=== PATIENT | female | born 1950 | race Caucasian/White ===

== ENCOUNTER 2018-08-27 10:23 | Observation (INO) | payer MEDICARE, SELFPAY ==
[2018-08-27] VITALS (15 sets, daily range): BP systolic 93–127; BP diastolic 50–68; PULSE 72–90; RESP 14–18; TEMP 36.6–36.9; O2SAT 92–100; BMI 22.3; BMI 22.1
[2018-08-27 10:36] LABS: Bedside Glucose 143 mg/dL (70-110)
--- NOTE | 2018-08-27 10:40 | EKG12_ITS ---
Test Reason : NEURO S/SX Blood Pressure : / mmHG Vent. Rate : 077 BPM Atrial Rate : 077 BPM P-R Int : 154 ms QRS Dur : 090 ms QT Int : 390 ms P-R-T Axes : 040 017 071 degrees QTc Int : 441 ms Normal sinus rhythm with sinus arrhythmia Normal ECG Confirmed by DIANE RESTREPO, TABITHA ([id number]), senior technical editor ESPERANZA STINSON ([id number] on 08/29/2018 11:34:31 AM Referred By: Ady Stevens Confirmed By:TABITHA CONTRERAS MD
--- NOTE | 2018-08-27 10:40 | CT_ITS ---
STUDY: CT BRAIN WITHOUT CONTRAST REASON FOR EXAM: Female, 68 years old. Left-sided weakness RADIATION DOSAGE (If Supplied By Facility): CTDIvol = ( 44.99 ) mGy, DLP = ( 796.11 ) mGycm TECHNIQUE: Transaxial CT imaging of the brain was performed without administration of intravenous contrast material. Individualized dose optimization techniques were used for this CT. COMPARISON: August 27, 2016 MRI, CTA head of 08/26/2016 FINDINGS: Normal soft tissue structures. Normal calvarium. There is mild cerebral atrophy with widening of the extra-axial spaces and ventricular dilatation. There are areas of decreased attenuation within the white matter tracts of the supratentorial brain, consistent with microvascular disease changes. Rounded low-density lesion adjacent to the right basal ganglia may represent an old lacunar infarction or prominent perivascular space. Normal brainstem. Normal cerebellum. There is no intracranial hemorrhage. There are no findings of an acute ischemic infarction. There is mucoperiosteal inflammatory disease of the paranasal sinuses consistent with severe sinusitis. CT/Brain/Head without Contrast IMPRESSION: 1. No acute intracranial hemorrhage or mass effect. 2. Pansinusitis, new since 2017. 3. Central parenchymal volume loss. White matter changes that are nonspecific but most commonly associated with chronic small vessel ischemic disease. Electronically Signed: Darío Broderick MD at 11:17 EDT , Service support ,
--- NOTE | 2018-08-27 10:40 | RAD_ITS ---
STUDY: X-RAY CHEST REASON FOR EXAM: Female, 68 years old. Cough TECHNIQUE: AP COMPARISON: 08/26/2016 FINDINGS: EKG leads project over the chest. The lungs are clear and expanded. There is no demonstrated pleural abnormality. Normal size heart. Normal mediastinum and shana. Normal visualized pulmonary arteries. There is atherosclerotic tortuosity of the aortic arch and descending thoracic aorta. No acute bony process. There is no demonstrated abnormality of the visualized soft tissue structures of the upper abdomen. RAD/Chest 1 View IMPRESSION: Stable, nonacute portable x-ray examination of the chest. Electronically Signed: Darío Broderick MD at 11:33 EDT , Service support ,
--- NOTE | 2018-08-27 10:44 | ED.VISSUMM ---
- ER Visit Summary Date of Service: 08/27/18 Chief Complaint: Left arm and leg weakness History of Present Illness: The patient is a 68 F who presents with left arm and leg weakness for the past 3 days. Patient states she woke up 3 days ago and was having weakness in her left arm and leg. Patient admits to some slurred speech but denies any difficulty swallowing. Patient denies any facial weakness. Patient does admit to a frontal headache. Patient states she has been having some nausea and vomiting for the past few days as well. Patient admits to some lower chest pain. Patient also admits to a cough but denies any sputum production. Patient denies any fevers or chills. Physical Examination: Vital signs are stable. Patient is afebrile. Patient is in no acute distress. Cranial nerves II through XII are intact. Strength is 5/5 in the right upper and lower extremity. Strength is 5/5 in plantar and dorsiflexion of the left ankle. Strength is 4/5 in the left upper extremity strength is 1/5 in quadriceps and hip flexion. There are no sensory deficits noted. Pupils are equal, round, and reactive to light bilaterally. Extraocular muscles are intact. There are no visual deficits noted. Oral mucosa is pink and moist. Tongue is midline. Neck is supple. Trachea is midline. There is no JVD noted. Heart was regular rate and rhythm. Lungs are clear and equal bilaterally. Abdomen is soft nontender. Test Results: CT scan of the brain was obtained. There are chronic changes and pansinusitis but no acute infarct or bleed. Portable chest x-ray was obtained. There are chronic changes but no acute cardiopulmonary process. EKG showed normal sinus rhythm with a rate of 77. There are no acute ST or T wave changes. CBC shows leukocytosis of 21.7 with 80 neutrophils and 14 lymphocytes. BUN was elevated at 74. Creatinine was slightly elevated at 1.74. Troponin was normal. Emergency Department Course and Treatment: Patient was given IV fluids. Patient had no improvement of her symptoms on reevaluation. Case was discussed with the hospitalist. Patient will be admitted to PCU. Patient understood and was agreeable with the plan. All questions were answered. Disposition: Admit to hospital Impression: Stroke with left-sided weakness This note was generated with [employer] software. It may contain incorrect words, spelling, and punctuation that were not noted in review of the chart prior to signing ED Disposition - Plan for ED Patient: Disposition: Acute Care Hospital [facility] Diagnosis: Stroke, Left-sided weakness Referrals: Care Physician,No Primary [Primary Care Provider] -
--- NOTE | 2018-08-27 10:48 | ED.DCSUM_ITS ---
- ER Visit Summary Date of Service: 08/27/18 Chief Complaint: Left arm and leg weakness History of Present Illness: The patient is a 68 F who presents with left arm and leg weakness for the past 3 days. Patient states she woke up 3 days ago and was having weakness in her left arm and leg. Patient admits to some slurred speech but denies any difficulty swallowing. Patient denies any facial weakness. Patient does admit to a frontal headache. Patient states she has been having some nausea and vomiting for the past few days as well. Patient admits to some lower chest pain. Patient also admits to a cough but denies any sputum production. Patient denies any fevers or chills. Physical Examination: Vital signs are stable. Patient is afebrile. Patient is in no acute distress. Cranial nerves II through XII are intact. Strength is 5/5 in the right upper and lower extremity. Strength is 5/5 in plantar and dorsiflexion of the left ankle. Strength is 4/5 in the left upper extremity strength is 1/5 in quadriceps and hip flexion. There are no sensory deficits noted. Pupils are equal, round, and reactive to light bilaterally. Extraocular muscles are intact. There are no visual deficits noted. Oral mucosa is pink and moist. Tongue is midline. Neck is supple. Trachea is midline. There is no JVD noted. Heart was regular rate and rhythm. Lungs are clear and equal bilaterally. Abdomen is soft nontender. Test Results: CT scan of the brain was obtained. There are chronic changes and pansinusitis but no acute infarct or bleed. Portable chest x-ray was obtained. There are chronic changes but no acute cardiopulmonary process. EKG showed normal sinus rhythm with a rate of 77. There are no acute ST or T wave changes. CBC shows leukocytosis of 21.7 with 80 neutrophils and 14 lymphocytes. BUN was elevated at 74. Creatinine was slightly elevated at 1.74. Troponin was normal. Emergency Department Course and Treatment: Patient was given IV fluids. Patient had no improvement of her symptoms on reevaluation. Case was discussed with the hospitalist. Patient will be admitted to PCU. Patient understood and was agreeable with the plan. All questions were answered. Disposition: Admit to hospital Impression: Stroke with left-sided weakness This note was generated with [employer] software. It may contain incorrect words, spelling, and punctuation that were not noted in review of the chart prior to signing ED Disposition - Plan for ED Patient: Disposition: Acute Care Hospital [facility] Diagnosis: Stroke, Left-sided weakness Referrals: Care Physician,No Primary [Primary Care Provider] -
[2018-08-27] MEDS: 0.9% Normal Saline 1,000 ML 999 ML IV (10:52)
[2018-08-27 10:57] LABS: Differential Indicated MANUAL DIFF; Hematocrit 34.7 % (37-47); Hemoglobin 11.7 g/dl (12.0-15.0); Mean Corp Hgb Conc 33.7 g/gl (32-36); Mean Corpuscular Hgb 29.3 pg (27.0-32.0); Mean Corpuscular Volume 86.8 fL (81-99); Mean Platelet Vol. 9.8 fl (6.2-12.0); POSITIVE COUNT YES; POSITIVE DIFFERENTIAL YES; POSITIVE MORPHOLOGY YES; Platelet Count 467 K/mm3 (150-450); RBC Distribution Width SD 44.7 fl (35.1-43.9); White Blood Count 21.7 K/mm3 (4.4-11.0)
[2018-08-27 10:58] LABS: International Normalized Ratio 1.1; Prothrombin Time (Protime)PT. 13.7 SECONDS (11.7-14.9)
[2018-08-27 10:59] LABS: Partial Thromboplast Time 31.1 Seconds (24.1-36.2)
[2018-08-27 11:07] LABS: Anion Gap 10 (5-15); BUN 74 mg/dL (7-18); BUN/Creat Ratio 42.5 RATIO (10-20); Chloride 104 mmol/L (98-107); Creatinine, Serum 1.74 mg/dL (0.55-1.02); EST Glomerular Filtration Rate 31 mL/min (>60); Est Glom Filt Rate - Afr Amer 37 mL/min (>60); Glucose 145 mg/dL (74-106); Potassium 3.9 mmol/L (3.5-5.1); Sodium Level 137 mmol/L (136-145)
[2018-08-27 11:17] LABS: Eosinophil 1 % (0-5); Lymphocyte 14 % (19-41); Monocyte 5 % (0-10); Neutrophil-Segmented 80 % (47-70); Total Cells Counted 100 (MANUAL DIFF)
[2018-08-27 11:21] LABS: Absolute Lymphocyte Count 3.04 X10^3/ul (0.83-4.51); Absolute Neutrophil Count 17.4 X10^3/uL (2.0-7.7)
--- NOTE | 2018-08-27 13:01 | NURSING ---
89 [place] STROKE WITH LEFT SIDED WEAKNESS
--- NOTE | 2018-08-27 13:26 | PCM.HP.STD ---
Problem List (1) Left-sided weakness Status: Acute (2) Alcohol abuse Status: Chronic (3) Tobacco abuse Status: Chronic (4) Probable COPD Status: Chronic (5) Resistant hypertension Status: Chronic (6) HLD (hyperlipidemia) Status: Acute History of Present Illness Date of Admission: 08/27/18 Chief Complaint: LUE and LLE weakness The patient is a 68 year old F with a PMH as below who presents with 3 days of left-sided weakness. Of note she had a stroke approximately 2 years ago with deficits on the left upper and left lower extremity. She did leave rehab early at that time he has had some degree of chronic weakness in her left side. She states that over the last 3 days it has been getting worse and her son made her come into the ER. In the ER CT scan of the brain was negative and chest x-ray was also normal. She had a 4 out of 5 deficit per the ER exam on the left upper extremity and 1 out of 5 in strength on the left lower extremity. She has been afebrile but had a leukocytosis to [address] scan she was read as having pansinusitis. Also of note she is having an LOREN creatinine of 1.74. She denies any recent illnesses and has not been around any sick contacts. She denies having any fevers at home. 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 Noncompliance (Chronic) Edentulism (Chronic) Resistant hypertension (Chronic) Personality disorder (Chronic) Allergies Penicillins Allergy (Verified 08/27/18 10:32) Other tetanus toxoid, adsorbed Allergy (Verified 08/27/18 10:32) ALMOST KILLED ME Home Medications: Ambulatory Orders Medication Instructions Recorded Amlodipine [Norvasc] 10 mg PO DAILY 08/27/18 Atorvastatin Calcium [Lipitor] 80 mg PO QHS 08/27/18 Cholecalciferol (Vitamin D3) 1 capsule PO QWEEK 08/27/18 [Vitamin D3] Lisinopril [Zestril] 10 mg PO DAILY 08/27/18 Surgical History: appendectomy, - - Left fourth finger amputation Psychiatric History: No pertinent psych hx 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 Denies: Chills, Fever, Weight Change HEENT: Denies: Head Aches, Sinus Congestion, Sinus Drainage Cardiovascular: Denies: Chest Pain, Palpitations Respiratory: Reports: Cough. Denies: Shortness of breath at rest, Sputum production Gastrointestinal: Denies: Abdominal Pain, Nausea, Vomiting Genitourinary: Denies: Dysuria Musculoskeletal: Denies: Joint Pain, Joint Tenderness Skin: Denies: Rash, Wounds Neurological: Reports: Focal weakness - Left upper and lower extremity. Denies: Numbness, Tingling Psychiatric: Denies: Anxiety, Depression, Homicidal Ideations, Suicidal Ideations Hematologic/ Lymphatic: Denies: Easy Bruising, Easy Bleeding VTE Information - Inpt Only VTE Present on Admission: No Patient Problems: Active and Suspected Problems Left-sided weakness (Acute) Stroke (Acute) - Physical Exam General: Alert, Oriented x3, Cooperative, No apparent distress, - - Slightly unkempt HEENT: Atraumatic, PERRLA, EOMI, Normocephalic Oral: Moist Mucosa Neck: Supple, No JVD Lungs: Clear to auscultation, Normal air movement, No rhonchi, No wheeze, No rales Cardiovascular: Regular rate, Regular Rhythm, Normal S1, Normal S2, No murmurs Abdomen: Soft, Non Tender, Non-Distended, No Hepato-splenomegaly Extremities: No edema, Capillary Refill Less than 3 Seconds Skin: No rashes, No breakdown Neurological: Cranial nerves II-XII grossly intact, Deep Tendon Reflexes 2+/4 and Symmetrical, Sensory exam intact to light touch and pain, Coordination normal, - - Left upper extremity is 4+ out of 5, left lower extremity is 4- out of 5. Proprioception is also intact Psych/Mental Status: Normal Affect, Appropriate Vital Signs Temp Pulse Resp BP Pulse Ox 98.0 F 82 18 117/62 98 08/27/18 10:28 08/27/18 13:15 08/27/18 13:15 08/27/18 13:15 08/27/18 13:15 Oxygen Flow Rate (L/min) 2 Oxygen Delivery Method Nasal Cannula Weight: 118 lb 2.684 oz Body Mass Index (BMI) 22.3 Finger Stick Blood Glucose 143 Laboratory Tests Past 24 Hrs 08/27/18 08/27/18 08/27/18 10:30 10:30 10:30 WBC 21.7 H RBC 4.00 L Hgb 11.7 L Hct 34.7 L MCV 86.8 MCH 29.3 MCHC 33.7 RDW 14.0 RDW Differential 44.7 H Plt Count 467 H MPV 9.8 Neut % (Auto) Not Reportable Absolute Neuts (auto) 17.4 H Absolute Lymphs (auto) 3.04 Total Counted 100 Neutrophils % (Manual) 80 H Lymphocytes % (Manual) 14 L Monocytes % (Manual) 5 Eosinophils % (Manual) 1 Diff Path Review July foll PT 13.7 INR 1.1 APTT 31.1 Sodium 137 Potassium 3.9 Chloride 104 Carbon Dioxide 23.0 Anion Gap 10 BUN 74 H Creatinine 1.74 H Estim Creat Clear Calc 22.70 Est GFR (MDRD) Af Amer 37 L Est GFR (MDRD) Non-Af 31 L BUN/Creatinine Ratio 42.5 H Glucose 145 H Calcium 10.0 Troponin I < 0.015 POC Glucose 08/27/18 10:32 POC Glucose 143 H Assessment/Plan All Active Problems Left-sided weakness (Acute) Stroke (Acute) HLD (hyperlipidemia) (Acute) Nicotine abuse (Acute) Debility (Acute) 1. Possible new CVA in the setting of 2 prior CVAs/leukocytosis -We will obtain a UA to evaluate for the leukocytosis even though she denies any dysuria -Possible that a urinary tract infection or even her pansinusitis could cause symptoms of her old stroke -We will obtain an echo and an MRI on Wednesday -Continue with aspirin but will hold her blood pressure medications for today and restart them tomorrow -We will perform NIH evaluations, my NIH is 2 some activity against gravity in her left leg -Begin aspirin -Chest x-ray was negative for pneumonia -If her leukocytosis does not resolve may need to initiate Augmentin therapy for her sinusitis 2. HTN/HLD -We will hold her blood pressure medications until tomorrow -Home Lipitor to 80 mg daily DVT: Lovenox Code Visit Inpatient E&M: 47765 Init Hosp L2
--- NOTE | 2018-08-27 13:30 | HP.PCM_ITS ---
Problem List (1) Left-sided weakness Status: Acute (2) Alcohol abuse Status: Chronic (3) Tobacco abuse Status: Chronic (4) Probable COPD Status: Chronic (5) Resistant hypertension Status: Chronic (6) HLD (hyperlipidemia) Status: Acute History of Present Illness Date of Admission: 08/27/18 Chief Complaint: LUE and LLE weakness The patient is a 68 year old F with a PMH as below who presents with 3 days of left-sided weakness. Of note she had a stroke approximately 2 years ago with deficits on the left upper and left lower extremity. She did leave rehab early at that time he has had some degree of chronic weakness in her left side. She s tates that over the last 3 days it has been getting worse and her son made her come into the ER. In the ER CT scan of the brain was negative and chest x-ray was also normal. She had a 4 out of 5 deficit per the ER exam on the left upper extremity and 1 out of 5 in strength on the left lower extremity. She has been afebrile but had a leukocytosis to [address] scan she was read as having pansinusitis. Also of note she is having an LOREN creatinine of 1.74. She denies any recent illnesses and has not been around any sick contacts. She denies having any fevers at home. 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 stenosis Noncompliance (Chronic) Edentulism (Chronic) Resistant hypertension (Chronic) Personality disorder (Chronic) Allergies Penicillins Allergy (Verified 08/27/18 10:32) Other tetanus toxoid, adsorbed Allergy (Verified 08/27/18 10:32) ALMOST KILLED ME Home Medications: Ambulatory Orders Medication Instructions Recorded Amlodipine [Norvasc] 10 mg PO DAILY 08/27/18 Atorvastatin Calcium [Lipitor] 80 mg PO QHS 08/27/18 Cholecalciferol (Vitamin D3) 1 capsule PO QWEEK 08/27/18 [Vitamin D3] Lisinopril [Zestril] 10 mg PO DAILY 08/27/18 Surgical History: appendectomy, - - Left fourth finger amputation Psychiatric History: No pertinent psych hx 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 Denies: Chills, Fever, Weight Change HEENT: Denies: Head Aches, Sinus Congestion, Sinus Drainage Cardiovascular: Denies: Chest Pain, Palpitations Respiratory: Reports: Cough. Denies: Shortness of breath at rest, Sputum production Gastrointestinal: Denies: Abdominal Pain, Nausea, Vomiting Genitourinary: Denies: Dysuria Musculoskeletal: Denies: Joint Pain, Joint Tenderness Skin: Denies: Rash, Wounds Neurological: Reports: Focal weakness - Left upper and lower extremity. Denies: Numbness, Tingling Psychiatric: Denies: Anxiety, Depression, Homicidal Ideations, Suicidal Ideations Hematologic/ Lymphatic: Denies: Easy Bruising, Easy Bleeding VTE Information - Inpt Only VTE Present on Admission: No Patient Problems: Active and Suspected Problems Left-sided weakness (Acute) Stroke (Acute) - Physical Exam General: Alert, Oriented x3, Cooperative, No apparent distress, - - Slightly unkempt HEENT: Atraumatic, PERRLA, EOMI, Normocephalic Oral: Moist Mucosa Neck: Supple, No JVD Lungs: Clear to auscultation, Normal air movement, No rhonchi, No wheeze, No rales Cardiovascular: Regular rate, Regular Rhythm, Normal S1, Normal S2, No murmurs Abdomen: Soft, Non Tender, Non-Distended, No Hepato-splenomegaly Extremities: No edema, Capillary Refill Less than 3 Seconds Skin: No rashes, No breakdown Neurological: Cranial nerves II-XII grossly intact, Deep Tendon Reflexes 2+/4 and Symmetrical, Sensory exam intact to light touch and pain, Coordination normal, - - Left upper extremity is 4+ out of 5, left lower extremity is 4- out of 5. Proprioception is also intact Psych/Mental Status: Normal Affect, Appropriate Vital Signs Temp Pulse Resp BP Pulse Ox 98.0 F 82 18 117/62 98 08/27/18 10:28 08/27/18 13:15 08/27/18 13:15 08/27/18 13:15 08/27/18 13:15 Oxygen Flow Rate (L/min) 2 Oxygen Delivery Method Nasal Cannula Weight: 118 lb 2.684 oz Body Mass Index (BMI) 22.3 Finger Stick Blood Glucose 143 Laboratory Tests Past 24 Hrs 08/27/18 08/27/18 08/27/18 10:30 10:30 10:30 WBC 21.7 H RBC 4.00 L Hgb 11.7 L Hct 34.7 L MCV 86.8 MCH 29.3 MCHC 33.7 RDW 14.0 RDW Differential 44.7 H Plt Count 467 H MPV 9.8 Neut % (Auto) Not Reportable Absolute Neuts (auto) 17.4 H Absolute Lymphs (auto) 3.04 Total Counted 100 Neutrophils % (Manual) 80 H Lymphocytes % (Manual) 14 L Monocytes % (Manual) 5 Eosinophils % (Manual) 1 Diff Path Review July foll PT 13.7 INR 1.1 APTT 31.1 Sodium 137 Potassium 3.9 Chloride 104 Carbon Dioxide 23.0 Anion Gap 10 BUN 74 H Creatinine 1.74 H Estim Creat Clear Calc 22.70 Est GFR (MDRD) Af Amer 37 L Est GFR (MDRD) Non-Af 31 L BUN/Creatinine Ratio 42.5 H Glucose 145 H Calcium 10.0 Troponin I < 0.015 POC Glucose 08/27/18 10:32 POC Glucose 143 H Assessment/Plan All Active Problems Left-sided weakness (Acute) Stroke (Acute) HLD (hyperlipidemia) (Acute) Nicotine abuse (Acute) Debility (Acute) 1. Possible new CVA in the setting of 2 prior CVAs/leukocytosis -We will obtain a UA to evaluate for the leukocytosis even though she denies any dysuria -Possible that a urinary tract infection or even her pansinusitis could cause symptoms of her old stroke -We will obtain an echo and an MRI on Wednesday -Continue with aspirin but will hold her blood pressure medications for today and restart them tomorrow -We will perform NIH evaluations, my NIH is 2 some activity against gravity in her left leg -Begin aspirin -Chest x-ray was negative for pneumonia -If her leukocytosis does not resolve may need to initiate Augmentin therapy for her sinusitis 2. HTN/HLD -We will hold her blood pressure medications until tomorrow -Home Lipitor to 80 mg daily DVT: Lovenox Code Visit Inpatient E&M: 21908 Init Hosp L2
--- NOTE | 2018-08-27 14:02 | ECHOCS_ITS ---
Reason For Study: TIA/CVA Procedure This was a 2D Doppler, Color Flow transthoracic echocardiogram. The study was technically difficult. Exam performed portable in patient room. Left Ventricle Normal LV size. Left ventricular systolic function is normal. The estimated ejection fraction is 65 %. Stage 1 diastolic dysfunction. No regional wall motion abnormalities noted. Right Ventricle Normal RV size. Normal systolic function. Atria Normal left atrium. Normal right atrium. Mitral Valve Normal mitral valve. Tricuspid Valve Normal tricuspid valve. Mild (1+) tricuspid valve insufficiency. Pulmonary artery systolic pressure is 37 mmHg. Aortic Valve Trisinus/trileaflet aortic valve. Mild focal aortic valve calcification. Pulmonic Valve Normal pulmonic valve. Great Vessels Normal aortic root. The pulmonary artery is normal size. Normal inferior vena cava. Pericardium/Pleural No pericardial effusion. Medication Diluted definity 2ml given slow IV push to enhance endocardial definition. MMode/2D Measurements & Calculations LVIDd: 4.1 cm IVSd: 0.73 cm LVOT diam: 1.8 cm LVIDs: 2.9 cm LVPWd: 0.76 cm RVDd: 2.7 cm FS: 29.5 % LVOT area: 2.6 cm2 LAV(MOD-bp): 60.5 ml LVAd ap4: 26.9 cm2 SV(MOD-sp4): 62.5 ml LAV(MOD-bp) Indexed: 40.2 ml/m2 EDV(MOD-sp4): 77.1 ml LAV(MOD-sp2): 64.2 ml EDV(sp4-el): 80.9 ml LAV(MOD-sp4): 53.9 ml LVAs ap4: 9.3 cm2 ESV(MOD-sp4): 14.6 ml ESV(sp4-el): 13.9 ml EF(MOD-sp4): 81.1 % EF(sp4-el): 82.9 % SV(sp4-el): 67.0 ml LA A4 area: 18.6 cm2 RA A4 area: 13.1 cm2 Time Measurements MV dec time: 0.28 sec Doppler Measurements & Calculations MV E max ziggy: 106.9 cm/sec Lat Peak E' Ziggy: 8.5 cm/sec Med Peak E' Ziggy: 6.3 cm/sec MV A max ziggy: 134.4 cm/sec E/E' lat: 12.6 E/E' med: 17.1 MV E/A: 0.80 MV V2 max: 140.1 cm/sec Ao V2 max: 232.3 cm/sec LV V1 max: 113.8 cm/sec MV max P.9 mmHg Ao max P.6 mmHg LV V1 max P.2 mmHg MV V2 mean: 96.4 cm/sec Ao V2 mean: 171.8 cm/sec LV V1 mean P.8 mmHg MV mean P.0 mmHg Ao mean P.7 mmHg LV V1 mean: 78.2 cm/sec MV V2 VTI: 41.7 cm Ao V2 VTI: 47.1 cm LV V1 VTI: 25.3 cm MVA(VTI): 1.6 cm2 LAZARO(I,D): 1.4 cm2 LAZARO(V,D): 1.3 cm2 SV(LVOT): 65.6 ml TR max ziggy: 290.8 cm/sec MV P1/2t-pr_phl: 104.2 msec TR max P.9 mmHg Interpretation Summary Normal LV size. Left ventricular systolic function is normal. The estimated ejection fraction is 65 %. Stage 1 diastolic dysfunction. Mild (1+) tricuspid valve insufficiency. Contrast injection was performed. Ordering Physician: Ady Stevens Referring Physician: Ady Stevens Performed By: Maye Salinas, MELANIA, RVT
--- NOTE | 2018-08-27 14:02 | MRI_ITS ---
STUDY: MRI BRAIN WITHOUT CONTRAST REASON FOR EXAM: Female, 68 years old. Left-sided weakness and pain TECHNIQUE: Standardized multiplanar fat and water weighted pulse sequences were obtained. COMPARISON: 27 August 2018 FINDINGS: There is no acute infarct. There is mild to moderate extent of chronic small vessel white matter ischemic change. There is a dilated perivascular space in the right basal ganglia and adjacent choroid fissure. There is mild global brain atrophy and moderate brainstem/cerebellar atrophy. There is no mass effect, midline shift, hydrocephalus or herniation. Incidentally noted is a right parasagittal occipital intraosseous pacchionian granulation. There are bilateral mastoid effusions. Nasopharynx is clear. There is loculation of fluid in the frontal, ethmoid, sphenoid and maxillary sinuses. Clivus is intact. Appearance is similar to recent CT head. MRI/Brain without Contrast IMPRESSION: 1. No acute findings. 2. Cerebellar predominant atrophy, this can be seen with primary or secondary neurodegenerative diseases. 3. Mild to moderate chronic white matter ischemic change. 4. Paranasal sinus mucosal reactive changes/fluid accumulation. 5. Bilateral mastoid effusions without otitis media or nasopharyngeal abnormality. Electronically Signed: Rosangela Brown, at 20:00 EDT Tel , Service support ,
[2018-08-27] MEDS: 0.9% Normal Saline 1,000 ML 100 ML IV (15:03)
[2018-08-27] MEDS: 0.9% NaCl Peripheral Flush Adult/Peds IV (15:04)
[2018-08-27 17:14] LABS: Color, Urine Yellow (Yellow); Glucose, Dipstick Normal (Normal); Ketone-Dipstick Negative (Negative); Leukocyte Esterase-Dipstick Negative /ul (Negative); Nitrite-Dipstick Negative (Negative); Occult Blood-Urine Negative /ul (Negative); Protein-Dipstick Negative (Negative); Urine Bilirubin Dipstick Negative (Negative); Urine Clarity Sl. Cloudy (Clear); Urine Urobilinogen Normal (Normal)
--- NOTE | 2018-08-27 21:40 | NURSING ---
This RN tried to assess patient for NIHSS but she refuses to allow this RN to assess her.
[2018-08-27] MEDS: Menthol/Lanolin/Calamine/Znox 113 GM Tube 1 APPLIC TOPICAL (21:55)
[2018-08-27] MEDS: Atorvastatin Calcium 80 MG Tablet PO (21:55)
[2018-08-28] VITALS (13 sets, daily range): BP systolic 106–127; BP diastolic 59–68; PULSE 74–91; RESP 16–18; TEMP 36.7–37.6; O2SAT 92–95; BMI 22.1
--- NOTE | 2018-08-28 01:18 | NURSING ---
This RN assessed patient and she was sating at 89-91 on room air. Patient refused to wear oxygen because she is not able to breath through her nose. This RN explained to patient the importance of keeping her oxygen saturation up above 93%. Patient began to yell at this RN and stated that she hates this hospital. That she came in here for a head cold and does not understand why she is not getting treated for that. This RN tried explaining to the patient the plan of care, however, she did not want to listen. The patient continued to yell at this RN. Patient refused to perform part of the stroke assessment, this RN assessed as much as she could. Patient was satting at 93% on room air while talking .
[2018-08-28] MEDS: 0.9% Normal Saline 1,000 ML 100 ML IV ×2 (01:22→11:26)
[2018-08-28] MEDS: Enoxaparin 30 MG/0.3 ML Syringe SC (05:33)
--- NOTE | 2018-08-28 05:36 | NURSING ---
This RN did as much of the stroke assessment that the patient would tolerate. Patient did not want to raise legs or arms to be assessed.
[2018-08-28 05:58] LABS: Absolute Lymphocyte Count 1.92 X10^3/ul (0.83-4.51); Absolute Neutrophil Count 13.1 X10^3/uL (2.0-7.7); Basophil# 0.04 X10^3/uL; Basophil% 0.2 % (0-1); Eosinophil# 0.27 X10^3/uL; Eosinophils% 1.6 % (0-5); Hematocrit 28.6 % (37-47); Hemoglobin 9.4 g/dl (12.0-15.0); Lymphocyte # 1.92 X10^3/ul (4.0); Lymphocyte % 11.1 % (19-41); Mean Corp Hgb Conc 32.9 g/gl (32-36); Mean Corpuscular Hgb 28.7 pg (27.0-32.0); Mean Corpuscular Volume 87.5 fL (81-99); Mean Platelet Vol. 9.4 fl (6.2-12.0); Monocyte# 1.55 X10^3/uL; Platelet Count 334 K/mm3 (150-450); RBC Distribution Width CV 14.1 % (11.6-14.6); RBC Distribution Width SD 45.3 fl (35.1-43.9); Red Blood Count 3.27 M/mm3 (4.2-5.4); White Blood Count 17.3 K/mm3 (4.4-11.0)
[2018-08-28 06:00] LABS: Differential Indicated SCAN CRITERIA MET; POSITIVE COUNT YES; POSITIVE DIFFERENTIAL YES; POSITIVE MORPHOLOGY YES
[2018-08-28 06:51] LABS: Anion Gap 8 (5-15); BUN 40 mg/dL (7-18); BUN/Creat Ratio 38.8 RATIO (10-20); Calcium,Total 8.3 mg/dL (8.5-10.1); Chloride 117 mmol/L (98-107); Cholesterol 59 mg/dL (200); Creatinine, Serum 1.03 mg/dL (0.55-1.02); EST Glomerular Filtration Rate 56 mL/min (>60); Est Glom Filt Rate - Afr Amer 68 mL/min (>60); Estimated Creatinine Clearance 38.35 ml/min; Glucose 99 mg/dL (74-106); High Density Lipoprotein 36 mg/dL; Sodium Level 145 mmol/L (136-145); Triglycerides 70 mg/dL; Very Low Density Lipoprotein 14 mg/dL (5-40)
--- NOTE | 2018-08-28 08:20 | PN_ITS ---
Patient Problems: Active and Suspected Problems Left-sided weakness (Acute) Stroke (Acute) Subjective: She states that her strength in her usage of her left lower extremity is back to normal. She says that she will not go to rehab or longterm facility for rehab. Continues to complain of some sinus pressure Vitals/I&O's: Vital Signs Temp Pulse Resp BP Pulse Ox 99.4 F H 91 18 127/63 H 92 08/28/18 05:15 08/28/18 05:15 08/28/18 05:15 08/28/18 05:15 08/28/18 05:15 Oxygen Flow Rate (L/min) 2 Oxygen Delivery Method Room Air Weight: 117 lb Body Mass Index (BMI) 22.1 Finger Stick Blood Glucose 143 Intake and Output for Last 24 Hours 08/26/18 08/27/18 08/28/18 23:59 23:59 23:59 Intake Total 377 / 377 1127 / 1127 Output Total 500 / 500 Balance -123 / -123 1127 / 1127 General: Alert, Oriented x3, Cooperative, No apparent distress, - - Slightly unkempt HEENT: Atraumatic, PERRLA, EOMI, Normocephalic Oral: Moist Mucosa Neck: Supple, No JVD Lungs: Clear to auscultation, Normal air movement, No rhonchi, No wheeze, No rales Cardiovascular: Regular rate, Regular Rhythm, Normal S1, Normal S2, No murmurs Abdomen: Soft, Non Tender, Non-Distended, No Hepato-splenomegaly Extremities: No edema, Capillary Refill Less than 3 Seconds Skin: No rashes, No breakdown Neurological: Cranial nerves II-XII grossly intact, Deep Tendon Reflexes 2+/4 and Symmetrical, Sensory exam intact to light touch and pain, Coordination normal, - - Left upper extremity is 4+ out of 5, left lower extremity is 4- out of 5. Proprioception is also intact Psych/Mental Status: Normal Affect, Appropriate Laboratory Results 08/27/18 10:30: WBC 21.7 H, RBC 4.00 L, Hgb 11.7 L, Hct 34.7 L, MCV 86.8, MCH 29.3, MCHC 33.7, RDW 14.0, RDW Differential 44.7 H, Plt Count 467 H, MPV 9.8, Neut % (Auto) Not Reportable, Absolute Neuts (auto) 17.4 H, Absolute Lymphs (auto) 3.04, Total Counted 100, Neutrophils % (Manual) 80 H, Lymphocytes % (Manual) 14 L, Monocytes % (Manual) 5, Eosinophils % (Manual) 1, Diff Path Review July foll 08/27/18 10:30: PT 13.7, INR 1.1, APTT 31.1 08/27/18 10:30: Sodium 137, Potassium 3.9, Chloride 104, Carbon Dioxide 23.0, Anion Gap 10, BUN 74 H, Creatinine 1.74 H, Estim Creat Clear Calc 22.70, Est GFR (MDRD) Af Amer 37 L, Est GFR (MDRD) Non-Af 31 L, BUN/Creatinine Ratio 42.5 H, Glucose 145 H, Calcium 10.0, Troponin I < 0.015 08/27/18 10:32: POC Glucose 143 H 08/27/18 15:30: Urine Color Yellow, Urine Clarity Sl. Cloudy, Urine pH 6.0, Ur Specific [place] 1.020, Urine Protein Negative, Urine Glucose (UA) Normal, Urine Ketones Negative, Urine Occult Blood Negative, Urine Nitrite Negative, Urine Bilirubin Negative, Urine Urobilinogen Normal, Ur Leukocyte Esterase Negative 08/28/18 05:38: Sodium 145, Potassium 4.0, Chloride 117 H, Carbon Dioxide 20.0 L , Anion Gap 8, BUN 40 H, Creatinine 1.03 H, Estim Creat Clear Calc 38.35, Est GFR (MDRD) Af Amer 68, Est GFR (MDRD) Non-Af 56 L, BUN/Creatinine Ratio 38.8 H, Glucose 99, Calcium 8.3 L, Triglycerides 70, Cholesterol 59, LDL Cholesterol 9, VLDL Cholesterol 14, HDL Cholesterol 36 L 08/28/18 05:38: Hemoglobin A1c Pending 08/28/18 05:38: WBC 17.3 H, RBC 3.27 L, Hgb 9.4 L, Hct 28.6 L, MCV 87.5, MCH 28 .7, MCHC 32.9, RDW 14.1, RDW Differential 45.3 H, Plt Count 334, MPV 9.4, Immature Gran % (Auto) 2.100 H, Neut % (Auto) 76.0 H, Lymph % (Auto) 11.1 L, [place] % (Auto) 9.0, Eos % (Auto) 1.6, Baso % (Auto) 0.2, Absolute Neuts (auto) 13.1 H, Absolute Lymphs (auto) 1.92, Total Counted Not Reportable, Diff Path Review May foll Current Medications Amlodipine Besylate (Norvasc) 10 mg PO DAILY [facility] Amoxicillin/Clavulanate Potassium (Augmentin Tablet) 875 mg PO BID [facility] Aspirin (Aspirin, Baby) 81 mg PO DAILY@0800 [facility] Atorvastatin Calcium (Lipitor) 80 mg PO QHS [facility] Last Admin: 08/27/18 21:55 Dose: 80 mg Calamine/Phenol (Calmoseptine Ointment) 1 applic TOPICAL BID [facility]; Protocol Last Admin: 08/27/18 21:55 Dose: 1 applicatio Enoxaparin Sodium (Lovenox) 30 mg SC DAILY@0600 [facility] Last Admin: 08/28/18 05:33 Dose: 30 mg Guaifenesin (Robitussin) 10 ml PO Q4H PRN PRN PRN Reason: COUGH Sodium Chloride () 1,000 mls @ 100 mls/hr IV .Q10H [facility] Last Admin: 08/28/18 01:22 Dose: 100 mls/hr Labetalol HCl (Trandate) 10 mg IV Q10M PRN PRN Reason: MAINTAIN BP < 220/120 Stop: 08/28/18 14:03 Lisinopril (Zestril) 10 mg PO DAILY [facility] Nutritional Formula (Lactose Free) (Ensure Enlive) 120 ml PO 4X/DAY [facility] Last Admin: 08/27/18 21:55 Dose: 120 ml Sodium Chloride () 5 - 15 ml IV UD PRN PRN Reason: SALINE FLUSH Last Admin: 08/27/18 15:04 Dose: 10 ml Medical Necessity - Tobacco Use Smoking Status: Former smoker Tobacco Use: Cigarettes Assessment/Plan All Active Problems Left-sided weakness (Acute) Stroke (Acute) HLD (hyperlipidemia) (Acute) Nicotine abuse (Acute) Debility (Acute) 1. Possible new CVA in the setting of 2 prior CVAs/leukocytosis -UA was negative for infection -Her white blood cell count is still 17,000, and given her continued pressure in her nasal sinuses will start Augmentin -We will obtain an echo and an MRI on Wednesday -Continue with aspirin home blood pressure medications -We will perform NIH evaluations, my NIH is 2 some activity against gravity in her left leg -Chest x-ray was negative for pneumonia -Continue with PT/OT 2. HTN/HLD -Continue with her home blood pressure medications -Home Lipitor to 80 mg daily DVT: Lovenox Code Visit Inpatient E&M: 94520 Subs Hosp L2
[2018-08-28] MEDS: Aspirin 81 MG TAB.CHEW PO (08:21)
[2018-08-28] MEDS: amLODIPine 10 MG Tablet PO (08:21)
[2018-08-28] MEDS: Menthol/Lanolin/Calamine/Znox 113 GM Tube 1 APPLIC TOPICAL ×2 (08:21→22:06)
[2018-08-28] MEDS: Lisinopril 10 MG Tablet PO (08:22)
[2018-08-28 08:41] LABS: Hemoglobin A1c 6.1 % (4.2-6.3)
[2018-08-28] MEDS: Amox/Clavulanate 875 MG Tablet PO ×2 (09:28→17:15)
--- NOTE | 2018-08-28 11:54 | CM.UR ---
RN CM Assessment Met face to face with patient for initial transition planning/care coordination assessment. Introduced myself and my role. Verb understanding and agreement for assessment. Patient gets frustrated easily with staff. She was impatient with me and my questions so I was not able to complete entire assessment. Presentation: presented to ER complaining of left arm and leg weakness x 3 days. some slurred speech and frontal headache. DME: States I have it all. I started reading what was noted last time: walker, grab bars, tub seat, BSC, cane. Again she just states, I got it all. I don't need anything. SNF/HHC: Went to Rehab after prior stroke. 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 DC PLAN: Home. She declines SNF/rehab placement. Denies any needs for equipment or help. Colten Tinsley RN, CCM.
[2018-08-28] MEDS: Atorvastatin Calcium 80 MG Tablet PO (22:07)
[2018-08-29 02:59] VITALS: PULSE 72
[2018-08-29 04:21] VITALS: BP 116/57; PULSE 84; RESP 18; TEMP 37; O2SAT 93
[2018-08-29 06:47] LABS: Absolute Lymphocyte Count 2.21 X10^3/ul (0.83-4.51); Absolute Neutrophil Count 12.2 X10^3/uL (2.0-7.7); Basophil# 0.03 X10^3/uL; Basophil% 0.2 % (0-1); Eosinophil# 0.24 X10^3/uL; Eosinophils% 1.5 % (0-5); Hematocrit 27.1 % (37-47); Hemoglobin 8.9 g/dl (12.0-15.0); Lymphocyte # 2.21 X10^3/ul (4.0); Lymphocyte % 13.6 % (19-41); Mean Corp Hgb Conc 32.8 g/gl (32-36); Mean Corpuscular Hgb 28.9 pg (27.0-32.0); Mean Platelet Vol. 9.7 fl (6.2-12.0); Monocyte# 1.35 X10^3/uL; Monocyte% 8.3 % (0-10); Neutrophil # 12.19 X10^3/uL (2.7-7.7); Platelet Count 309 K/mm3 (150-450); RBC Distribution Width CV 14.5 % (11.6-14.6); RBC Distribution Width SD 46.1 fl (35.1-43.9); Red Blood Count 3.08 M/mm3 (4.2-5.4); White Blood Count 16.2 K/mm3 (4.4-11.0)
[2018-08-29 06:57] LABS: POSITIVE COUNT NO; POSITIVE DIFFERENTIAL NO; POSITIVE MORPHOLOGY NO
[2018-08-29 06:59] LABS: Anion Gap 8 (5-15); BUN 25 mg/dL (7-18); BUN/Creat Ratio 27.7 RATIO (10-20); Calcium,Total 8.5 mg/dL (8.5-10.1); Chloride 114 mmol/L (98-107); EST Glomerular Filtration Rate 65 mL/min (>60); Est Glom Filt Rate - Afr Amer 79 mL/min (>60); Estimated Creatinine Clearance 43.89 ml/min; Glucose 105 mg/dL (74-106); Potassium 3.8 mmol/L (3.5-5.1); Sodium Level 144 mmol/L (136-145)
[2018-08-29 07:08] VITALS: PULSE 72
--- NOTE | 2018-08-29 07:59 | PCM.PROGNOTE ---
Patient Problems: Active and Suspected Problems Left-sided weakness (Acute) Stroke (Acute) Subjective: Day #2 Augmentin The patient is a 68-year-old female with a past medical history of hypertension, hyperlipidemia, alcohol abuse, dyslipidemia, tobacco dependence, probable COPD and prior CVA with residual left side weakness who presented to the emergency department at [facility] on 08/27/2018 complaining of increased left-sided weakness. The weakness had been present for [address] brain in the ER showed pansinusitis with white matter changes. Chest x-ray showed no infiltrates, pulmonary vascular congestion or pleural effusions. Blood pressure at presentation to the emergency room was 93/54. White blood cell count was elevated at 21.7 with 80% neutrophils. Hemoglobin was mildly decreased at 11.7 and the MCV was 86.8 with a normal RDW. Platelet count was increased at 467,000. Electrolytes were within normal limits and the BUN was 74 with a creatinine of 1.74. Troponin was less than 0.015. She was admitted to a monitored bed on PCU and the stroke protocol was initiated. She refused the BSE for swallowing by the ST. She ambulated only 2 feet with PT. ECHO and MRI are ordered for today. Telemetry shows normal sinus rhythm with rare PVC. She is afebrile with stable vital signs. Her blood pressure is 116/57. Pulse ox on room air is 93 to 94%. Total cholesterol is 59 with an LDL of 9 and HDL of 36. She is on Lipitor. Hemoglobin with hydration has dropped to 8.9 with normochromic normocytic indices and a normal RDW. Creatinine is 0.9, down from 1.74 at admission. Intake and output are not accurate. Tells me that she quit smoking 1 week ago and she has not had a drink since . Lives alone. Uses a rollator at home. Not able to walk for a few days prior to admission. Denies any difficulty swallowing. She is edentulous. States she wants to be discharged home....hates this hospital because her mother was killed here 20 years ago. Tells me that she did not have a stroke and she has no problems with her kidneys. She maintains that she is weak due to a sinus infection. She was started on Augmentin on 08/28/2018. - Physical Exam General: Alert, Oriented x3, Non-Cooperative HEENT: Atraumatic, PERRLA, EOMI, Normocephalic Oral: Moist Mucosa Neck: Supple, Trachea Midline, Carotid Bruit, Left Lungs: Diminished Cardiovascular: Regular rate, Regular Rhythm, Normal S1, Normal S2, Murmur - 1/6 at the second RICS with radiation to the apex, No rub noted, No Gallop Abdomen: Bowel Sounds Present, Soft, Non Tender, Non-Distended Extremities: No clubbing, No cyanosis, No edema Skin: No rashes, No breakdown Neurological: Cranial nerves II-XII grossly intact, - - Pt would not cooperate with my exam. She was able to lift her left arm above her head. She lifted the left leg about 1 inch off the bed and then let it drop.....she would not let be complete a neuro exam or even touch her arms or legs......swats my hand away. Vital Signs Temp Pulse Resp BP Pulse Ox 98.6 F 72 18 116/57 L 93 08/29/18 04:21 08/29/18 07:08 08/29/18 04:21 08/29/18 04:21 08/29/18 04:21 Oxygen Flow Rate (L/min) 2 Oxygen Delivery Method Room Air Weight: 116 lb 15.989 oz Body Mass Index (BMI) 22.1 Finger Stick Blood Glucose 143 Intake and Output for Last 24 Hours 08/27/18 08/28/18 08/29/18 23:59 23:59 23:59 Intake Total 377 / 377 3723 / 3723 90 / 90 Output Total 500 / 500 Balance -123 / -123 3723 / 3723 90 / 90 Laboratory Tests Past 24 Hrs 08/28/18 08/29/18 08/29/18 05:38 05:50 05:50 WBC 16.2 H RBC 3.08 L Hgb 8.9 L Hct 27.1 L MCV 88.0 MCH 28.9 MCHC 32.8 RDW 14.5 RDW Differential 46.1 H Plt Count 309 MPV 9.7 Immature Gran % (Auto) 1.400 H Neut % (Auto) 75.0 H Lymph % (Auto) 13.6 L [place] % (Auto) 8.3 Eos % (Auto) 1.5 Baso % (Auto) 0.2 Absolute Neuts (auto) 12.2 H Absolute Lymphs (auto) 2.21 Total Counted Not Reportable Sodium 144 Potassium 3.8 Chloride 114 H Carbon Dioxide 22.0 Anion Gap 8 BUN 25 H Creatinine 0.90 Estim Creat Clear Calc 43.89 Est GFR (MDRD) Af Amer 79 Est GFR (MDRD) Non-Af 65 BUN/Creatinine Ratio 27.7 H Glucose 105 Hemoglobin A1c 6.1 Calcium 8.5 Medical Necessity - Tobacco Use Smoking Status: Former smoker Tobacco Use: Cigarettes Assessment/Plan All Active Problems Left-sided weakness (Acute) Stroke (Acute) HLD (hyperlipidemia) (Acute) Nicotine abuse (Acute) Debility (Acute) Impressions 1. 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 Awaiting the MRI report. No hx of AF and no AF on telemetry. 2. hypotension at admission - suspect due to dehydration. Resolved. Not on any diuretics. 3. hx of HTN 4. pansinusitis -started Augmentin 08/28/18 5. ARF - resolved. Likely due to dehydration. 6. edentulous 7. anemia- N/N with a normal RDW 8. Tobacco dependence-tells me she quit 1 week ago 9. History of alcohol dependence-tells me that she has not had a drink since Thanksgiving pt refusing PT/OT and ST. Has not ambulated and wants to go home. Refusing SNF. I informed her I will nopt discharge until she shows me that she is able to use the rollator. Await the results of the MRI and ECHO. DC the IV fluids. W/U for anemia as an OP carotid US as an OP to evaluate for Left carotid bruit.
[2018-08-29 08:44] LABS: AST(SGOT) 16 U/L (15-37); Alanine Aminotransfer ALT/SGPT 18 U/L (13-56); Albumin, Serum 1.8 g/dL (3.2-5.0); Alkaline Phosphatase 45 U/L (45-117); Bilirubin, Direct 0.09 mg/dL (0.00-0.30); GGTP 6 U/L (5-55); Globulin 3.5 g/dL (2.2-4.2); Protein, Total 5.3 g/dL (6.4-8.2)
[2018-08-29] MEDS: Aspirin 81 MG TAB.CHEW PO (09:57)
[2018-08-29] MEDS: Amox/Clavulanate 875 MG Tablet PO (09:57)
[2018-08-29] MEDS: Lisinopril 10 MG Tablet PO (09:58)
[2018-08-29] MEDS: amLODIPine 10 MG Tablet PO (09:58)
[2018-08-29] MEDS: Menthol/Lanolin/Calamine/Znox 113 GM Tube 1 APPLIC TOPICAL (09:58)
[2018-08-29 10:20] VITALS: BP 125/65; PULSE 79; RESP 20; TEMP 36.8; O2SAT 92
[2018-08-29 10:28] VITALS: BMI 22.1
[2018-08-29 10:55] VITALS: PULSE 75
--- NOTE | 2018-08-29 11:23 | DCINST_ITS ---
- Discharge Diagnoses Current Active Problems: Current Active and Chronic Problems Left-sided weakness (Acute) Stroke (Acute) You will use the following diet at home:: Cardiac Your food should be the consistency of: Regular Your liquids should be the consistency of: Regular/Thin Discharge Activity: Return to Normal Activity Additional Instructions: Avoid NSAIDs (ibuprofen, motrin, naproxyn, aleve) Allergies/Adverse Reactions: Allergies strawberry Allergy (Verified 08/27/18 14:06) Hives tetanus toxoid, adsorbed Allergy (Verified 08/27/18 10:32) ALMOST KILLED ME Medications to take at Discharge Amlodipine [Norvasc] 10 mg PO DAILY 08/27/18 Atorvastatin Calcium [Lipitor] 80 mg PO QHS 08/27/18 Cholecalciferol (Vitamin D3) [Vitamin D3] 1 capsule PO QWEEK 08/27/18 Lisinopril [Zestril] 10 mg PO DAILY 08/27/18 Amox/Clavulanate Tablet [Augmentin Tablet] 875 mg PO BIDCM #17 tablet 08/29/18 Aspirin [Aspirin, Baby] 81 mg PO DAILY@0800 tab.chew 08/29/18 Guaifenesin [Robitussin] 10 ml PO Q4H PRN PRN udc 08/29/18 The following prescriptions were given: Amox/Clavulanate Tablet [Augmentin Tablet] 875 mg PO BIDCM #17 tablet Primary Care Physician: Care Physician,No Primary [Primary Care Provider] - Please follow up with your Primary Care Physician in: 1-2 weeks Test Results: Test results from this visit will be discussed in further detail at your follow- up appointment, if applicable. Proposed Discharge Date: 08/29/18
--- NOTE | 2018-08-29 11:26 | PCA ---
Provided patient with a list of area PCPs accepting patients in with discharge paperwork.
--- NOTE | 2018-08-29 11:40 | CASEMGMT ---
This RN CM to room to speak with pt regarding recommendations for additional therapy at discharge and pt declines HHC and OP therapy at this time. Pt insists on going home on own and states 'I do my own therapy at home.' Pt states that she has an aide that comes out and she doesn't need anything else. Minnie LOCKETT aware, voices understanding. Pt voices no further questions/concerns/needs at this time. SStaten STEF BARBOSA
--- NOTE | 2018-08-29 11:49 | NURSING ---
Went to discuss discharge with patient and she states she refuses to leave. Says she will not have a ride until tomorrow. Informed patient of the hospital van and pt states she refuses to get on any hospital van. sports anchor notified
--- NOTE | 2018-08-29 11:50 | CASEMGMT ---
Patient is active with [email or web address]. TODD called [facility] and spoke with Pj Alanis on the coverage line. Patient's case resource manager is Ladonnanini Raghu. She has a medical alert button and goes to [employer] [facility] up to 2 times a week. TODD notified them of her admission and discharge. RN said patient is refusing to leave today. She said she does not have a ride. They offered the hospital van and she refused. SW said we can call her insurance and arrange transportation. RN told patient this and patient said she won't have a buitrago until tomorrow. TODD called the apartment complex where patient resides and asked if they are able to let people into their apts when they have lost their buitrago. She said yes they can do this. TODD spoke with patient. Introduced self and role at [facility]. SW let her know SW notified [facility] that she is being discharged today. SW offered to call her insurance to arrange a ride home. She said she doesn't have her buitrago. She said she is not going today and she will go tomorrow. TODD told her that she is being discharged today and we can work with her landlord. TODD told her that her landlord could let her into her apt. She said she isn't paying $20 and not only that she would have to walk to the office. She can't walk to the office without her walker which is in her apt. TODD told her we could talk with her landlord and see if they could meet her at her apt to let her in. Patient then picked up her phone and called her friend Johann. When she hung up she said he can't pick her up until 3p. TODD and RN told her that is fine. Reny LAINEZ MSW
--- NOTE | 2018-08-29 12:36 | PCM.DC.SUM ---
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 No acute intracranial hemorrhage or mass effect. 2. Pansinusitis, new since 2017. 3. Central parenchymal volume loss. White matter changes that are nonspecific but most commonly associated with chronic small vessel ischemic disease. RAD/Chest 1 View IMPRESSION: Stable, nonacute portable x-ray examination of the chest. MRI/Brain without Contrast IMPRESSION: 1. No acute findings. 2. Cerebellar predominant atrophy, this can be seen with primary or secondary neurodegenerative diseases. 3. Mild to moderate chronic white matter ischemic change. 4. Paranasal sinus mucosal reactive changes/fluid accumulation. 5. Bilateral mastoid effusions without otitis media or nasopharyngeal abnormality. Operations: None Procedures: None Summary of Care Provided: Hospital course: The patient is a 68 year old F with pmhx of prior CVA with ongoing left sided weakness and slurred speech, hx nicotine abuse, hx alcoholism, hx of HTN, chronic anemia who presented to the ER with c/o LUE and LLE weakness. She also complained of a week and a half of sinus congestion and cough. She felt her chronic left sided deficits were worsening. She does have slurred speech however she noted this was present after her prior stroke 2 years ago and is not worse. In the ER she had a negative CXR, negative EKG, CT brain with chronic vascular changes and pansinusitis, LOREN, and significant leukocytosis. She was admitted to the PCU for stroke work up. She was also started on Augmentin for acute sinusitis. MRI was obtained and did not show an acute infarct. LOREN resolved with IV fluids. WBCs progressively declined. She remained very weak and unsteady on her feet. She initially refused PTOT, however later agreed to work with them. She did poorly and SNF or home health was advised. The patient refused both to consider SNF and to have home health services at home. She was discharged home in stable condition and will need to follow up with her PCP in 1-2 weeks. She was prescribed a 10 days course of augmentin for sinusitis. This patient was seen by Fredy Doll PA-C under the supervision of Doctor Ko. [] Patient Problems: Active and Suspected Problems Left-sided weakness (Acute) Stroke (Acute) - Physical Exam General: Alert, Oriented x3, Cooperative HEENT: Atraumatic, PERRLA, EOMI, Normocephalic Neck: Supple, No JVD, Negative Carotid Bruits Lungs: Clear to auscultation, Normal air movement Cardiovascular: Regular rate, No murmurs Abdomen: Bowel Sounds Present, Soft, Non Tender Extremities: No edema, Capillary Refill Less than 3 Seconds Skin: No rashes, No breakdown Musculoskeletal: No Tenderness to Palpation of Joints or Extremities Neurological: Cranial nerves II-XII grossly intact, Slurred Speech, - - slurred speech, LUE LLE weakness. 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 Psych/Mental Status: Agitated Vital Signs Temp Pulse Resp BP Pulse Ox 98.3 F 75 20 H 125/65 H 92 08/29/18 10:20 08/29/18 10:55 08/29/18 10:20 08/29/18 10:20 08/29/18 10:20 Oxygen Flow Rate (L/min) 2 Oxygen Delivery Method Room Air Weight: 116 lb 15.989 oz Body Mass Index (BMI) 22.1 Finger Stick Blood Glucose 143 Intake and Output for Last 24 Hours 08/27/18 08/28/18 08/29/18 23:59 23:59 23:59 Intake Total 377 / 377 3723 / 3723 90 / 90 Output Total 500 / 500 Balance -123 / -123 3723 / 3723 90 / 90 Laboratory Tests Past 24 Hrs 08/29/18 08/29/18 08/29/18 05:50 05:50 05:50 WBC 16.2 H RBC 3.08 L Hgb 8.9 L Hct 27.1 L MCV 88.0 MCH 28.9 MCHC 32.8 RDW 14.5 RDW Differential 46.1 H Plt Count 309 MPV 9.7 Immature Gran % (Auto) 1.400 H Neut % (Auto) 75.0 H Lymph % (Auto) 13.6 L Jay % (Auto) 8.3 Eos % (Auto) 1.5 Baso % (Auto) 0.2 Absolute Neuts (auto) 12.2 H Absolute Lymphs (auto) 2.21 Total Counted Not Reportable Sodium 144 Potassium 3.8 Chloride 114 H Carbon Dioxide 22.0 Anion Gap 8 BUN 25 H Creatinine 0.90 Estim Creat Clear Calc 43.89 Est GFR (MDRD) Af Amer 79 Est GFR (MDRD) Non-Af 65 BUN/Creatinine Ratio 27.7 H Glucose 105 Calcium 8.5 Total Bilirubin 0.30 Direct Bilirubin 0.09 GGT 6 AST 16 ALT 18 Alkaline Phosphatase 45 Total Protein 5.3 L Albumin 1.8 L Globulin 3.5 Discharge Diet: Low fat/ Low Cholesterol, 2000 mg Sodium Diet Discharge Activity: Return to Normal Activity Home Medications: Medications to take at Discharge Amlodipine [Norvasc] 10 mg PO DAILY 08/27/18 Atorvastatin Calcium [Lipitor] 80 mg PO QHS 08/27/18 Cholecalciferol (Vitamin D3) [Vitamin D3] 1 capsule PO QWEEK 08/27/18 Lisinopril [Zestril] 10 mg PO DAILY 08/27/18 Amox/Clavulanate Tablet [Augmentin Tablet] 875 mg PO BIDCM #17 tablet 08/29/18 Aspirin [Aspirin, Baby] 81 mg PO DAILY@0800 tab.chew 08/29/18 Guaifenesin [Robitussin] 10 ml PO Q4H PRN PRN udc 08/29/18 Following Prescrptions Were Given to Patient: Amox/Clavulanate Tablet [Augmentin Tablet] 875 mg PO BIDCM #17 tablet Primary Care Physician: Care Physician,No Primary [Primary Care Provider] - Please follow up with your Primary Care Physician in: 1-2 weeks Disposition: Home Minutes spent on discharge:: 35 Patient Condition:: Stable Medical Necessity - Tobacco Use Smoking Status: Former smoker Tobacco Use: Cigarettes Meaningful Use Info Meaningful Use Diagnoses (Choose all that apply): None applicable
--- NOTE | 2018-08-29 12:45 | DS.PCM_ITS ---
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 No acute intracranial hemorrhage or mass effect. 2. Pansinusitis, new since 2017. 3. Central parenchymal volume loss. White matter changes that are nonspecific but most commonly associated with chronic small vessel ischemic disease. RAD/Chest 1 View IMPRESSION: Stable, nonacute portable x-ray examination of the chest. MRI/Brain without Contrast IMPRESSION: 1. No acute findings. 2. Cerebellar predominant atrophy, this can be seen with primary or secondary neurodegenerative diseases. 3. Mild to moderate chronic white matter ischemic change. 4. Paranasal sinus mucosal reactive changes/fluid accumulation. 5. Bilateral mastoid effusions without otitis media or nasopharyngeal abnormality. Operations: None Procedures: None Summary of Care Provided: Hospital course: The patient is a 68 year old F with pmhx of prior CVA with ongoing left sided weakness and slurred speech, hx nicotine abuse, hx alcoholism, hx of HTN, chronic anemia who presented to the ER with c/o LUE and LLE weakness. She also complained of a week and a half of sinus congestion and cough. She felt her chronic left sided deficits were worsening. She does have slurred speech however she noted this was present after her prior stroke 2 years ago and is not worse. In the ER she had a negative CXR, negative EKG, CT brain with chronic vascular changes and pansinusitis, LOREN, and significant leukocytosis. She was admitted to the PCU for stroke work up. She was also started on Augmentin for acute sinusitis. MRI was obtained and did not show an acute infarct. LOREN resolved with IV fluids. WBCs progressively declined. She remained very weak and unsteady on her feet. She initially refused PTOT, however later agreed to work with them. She did poorly and SNF or home health was advised. The patient refused both to consider SNF and to have home health services at home. She was discharged home in stable condition and will need to follow up with her PCP in 1-2 weeks. She was prescribed a 10 days course of augmentin for sinusitis. This patient was seen by Fredy Doll PA-C under the supervision of Doctor Ko. [] Patient Problems: Active and Suspected Problems Left-sided weakness (Acute) Stroke (Acute) - Physical Exam General: Alert, Oriented x3, Cooperative HEENT: Atraumatic, PERRLA, EOMI, Normocephalic Neck: Supple, No JVD, Negative Carotid Bruits Lungs: Clear to auscultation, Normal air movement Cardiovascular: Regular rate, No murmurs Abdomen: Bowel Sounds Present, Soft, Non Tender Extremities: No edema, Capillary Refill Less than 3 Seconds Skin: No rashes, No breakdown Musculoskeletal: No Tenderness to Palpation of Joints or Extremities Neurological: Cranial nerves II-XII grossly intact, Slurred Speech, - - slurred speech, LUE LLE weakness. 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 Psych/Mental Status: Agitated Vital Signs Temp Pulse Resp BP Pulse Ox 98.3 F 75 20 H 125/65 H 92 08/29/18 10:20 08/29/18 10:55 08/29/18 10:20 08/29/18 10:20 08/29/18 10:20 Oxygen Flow Rate (L/min) 2 Oxygen Delivery Method Room Air Weight: 116 lb 15.989 oz Body Mass Index (BMI) 22.1 Finger Stick Blood Glucose 143 Intake and Output for Last 24 Hours 08/27/18 08/28/18 08/29/18 23:59 23:59 23:59 Intake Total 377 / 377 3723 / 3723 90 / 90 Output Total 500 / 500 Balance -123 / -123 3723 / 3723 90 / 90 Laboratory Tests Past 24 Hrs 08/29/18 08/29/18 08/29/18 05:50 05:50 05:50 WBC 16.2 H RBC 3.08 L Hgb 8.9 L Hct 27.1 L MCV 88.0 MCH 28.9 MCHC 32.8 RDW 14.5 RDW Differential 46.1 H Plt Count 309 MPV 9.7 Immature Gran % (Auto) 1.400 H Neut % (Auto) 75.0 H Lymph % (Auto) 13.6 L [place] % (Auto) 8.3 Eos % (Auto) 1.5 Baso % (Auto) 0.2 Absolute Neuts (auto) 12.2 H Absolute Lymphs (auto) 2.21 Total Counted Not Reportable Sodium 144 Potassium 3.8 Chloride 114 H Carbon Dioxide 22.0 Anion Gap 8 BUN 25 H Creatinine 0.90 Estim Creat Clear Calc 43.89 Est GFR (MDRD) Af Amer 79 Est GFR (MDRD) Non-Af 65 BUN/Creatinine Ratio 27.7 H Glucose 105 Calcium 8.5 Total Bilirubin 0.30 Direct Bilirubin 0.09 GGT 6 AST 16 ALT 18 Alkaline Phosphatase 45 Total Protein 5.3 L Albumin 1.8 L Globulin 3.5 Discharge Diet: Low fat/ Low Cholesterol, 2000 mg Sodium Diet Discharge Activity: Return to Normal Activity Home Medications: Medications to take at Discharge Amlodipine [Norvasc] 10 mg PO DAILY 08/27/18 Atorvastatin Calcium [Lipitor] 80 mg PO QHS 08/27/18 Cholecalciferol (Vitamin D3) [Vitamin D3] 1 capsule PO QWEEK 08/27/18 Lisinopril [Zestril] 10 mg PO DAILY 08/27/18 Amox/Clavulanate Tablet [Augmentin Tablet] 875 mg PO BIDCM #17 tablet 08/29/18 Aspirin [Aspirin, Baby] 81 mg PO DAILY@0800 tab.chew 08/29/18 Guaifenesin [Robitussin] 10 ml PO Q4H PRN PRN udc 08/29/18 Following Prescrptions Were Given to Patient: Amox/Clavulanate Tablet [Augmentin Tablet] 875 mg PO BIDCM #17 tablet Primary Care Physician: Care Physician,No Primary [Primary Care Provider] - Please follow up with your Primary Care Physician in: 1-2 weeks Disposition: Home Minutes spent on discharge:: 35 Patient Condition:: Stable Medical Necessity - Tobacco Use Smoking Status: Former smoker Tobacco Use: Cigarettes Meaningful Use Info Meaningful Use Diagnoses (Choose all that apply): None applicable
[2018-08-29 14:56] VITALS: BP 125/66; PULSE 88; RESP 18; TEMP 37; O2SAT 94
[2018-08-29 15:16] LABS: Pathologist Review Reviewed
[2018-08-29 15:20] LABS: Pathologist Review Reviewed
== END 2018-08-29 11:43 | disposition home or self-care (01) ==
LOC: ED 12:31 → PCU 12:46
PROVIDERS: Admitting Provider Family Medicine; Emergency Provider Emergency Medicine; Referring Provider Family Medicine; Visit Provider Internal Medicine
DX: J32.4 Chronic pansinusitis (principal); N17.9 Acute kidney failure, unspecified; E86.0 Dehydration; D64.9 Anemia, unspecified; I69.354 Hemiplegia and hemiparesis following cerebral infarction affecting left non-dominant side; R47.81 Slurred speech; E78.5 Hyperlipidemia, unspecified; I10 Essential (primary) hypertension; Z87.891 Personal history of nicotine dependence; F10.21 Alcohol dependence, in remission; Z79.899 Other long term (current) drug therapy; R29.706 NIHSS score 6
CPT/HCPCS: 36415; 70450; 70551; 71045; 80048; 80061; 80076; 81002; 82962; 82977; 83036; 84484; 85025; 85610; 85730; 93005; 93306; 96360; 96361; 96372; 97162; 97166; 97530; 97802; 99218; 99285; J7030; Q9957; A4216; C8929; G0378